=== PATIENT | male | born 1980 ===

== ENCOUNTER 2025-01-30 16:31 | Outpatient (CLI) | payer BC, SELFPAY ==
[2025-02-13 17:39] LABS: Result Summary Normal; Specimen Blood
== END 2025-01-30 16:32 | disposition home or self-care (01) ==
PROVIDERS: Visit Provider Obstetrics & Gynecology
DX: Z31.441 Encounter for testing of male partner of patient with recurrent pregnancy loss (principal)
CPT/HCPCS: 36415; 88230; 88291; 88262

== ENCOUNTER 2025-03-27 16:12 | Outpatient (REF) | payer BC, SELFPAY ==
[2025-03-27 19:31] LABS: Abs Immature Grans 0.01 10^3/uL (0.0-0.06); HCT 46.0 % (40.0-50.0); HGB 15.2 g/dL (13.5-17.5); Immature Grans % 0.2 %; MCH 29.7 pg (27.0-33.0); MCHC 33.0 % (32.0-36.0); MCV 90 fL (80-95); MPV 11.0 fL (8.0-11.0); Platelet Count 216 10^3/uL (130-400); RBC 5.12 10^6/uL (4.36-5.78); RDW 11.6 % (11.8-14.1); RDW-SD 38.3 fL; WBC 5.35 10^3/uL (4.4-10.8)
[2025-03-27 19:48] LABS: Hemoglobin A1C 5.3 % (<5.7)
[2025-03-27 19:59] LABS: ALT 24 U/L (16-63); AST 20 U/L (15-37); Albumin 4.2 g/dL (3.4-5.0); Alkaline Phosphatase 68 U/L (46-116); Anion Gap 4.4 mmol/L (3-11); BUN 14 mg/dL (7-18); Bilirubin, Total 0.7 mg/dL (0.2-1.0); CO2 33.6 mmol/L (21.0-32.0); Calcium 9.2 mg/dL (8.5-10.1); Calculated LDL 89 mg/dL (<100); Chloride 104 mmol/L (98-107); Cholesterol 166 mg/dL (<200); Estimated GFR 84.89 (mL/min/1.73m2); Glucose 106 mg/dL (74-106); HDL Cholesterol 60 mg/dL (>or=40); Potassium 4.3 mmol/L (3.5-5.1); Sodium 142 mmol/L (136-145); TSH 0.68 uIU/mL (0.36-3.74); Total Protein 7.2 g/dL (6.4-8.2); Triglyceride 87 mg/dL (<150)
== END 2025-03-27 16:13 | disposition home or self-care (01) ==
LOC: NCHCN 16:12
PROVIDERS: Visit Provider Family Medicine
DX: Z00.00 Encounter for general adult medical examination without abnormal findings (principal)
CPT/HCPCS: 80053; 80061; 83036; 84443; 85025